=== PATIENT | male | born 1955 | race Caucasian/White ===

== ENCOUNTER 2016-11-21 23:41 | Inpatient (IN) | payer MEDICARE, OTHER ==
[~2016-11-21] VITALS: Ht 172.7 cm; Wt 101.5 kg
[~2016-11-21 23:41] MED LIST: AMLO-512 PO; ASPI81TA2 PO; CARB200T6 PO; CLON.2P TD; INSLAN SQ; INSU100I3 SQ; LISI-618 PO; METO200T PO; MINO10TA3 PO; MULT-1238 PO; PANT40TA25 PO; PARO20TA24 PO; POTA20TA82 PO; SENN-161 PO; SIMV-260 PO
[2016-11-22] MEDS ORDERED: HUMLIS7525 SQ (00:11)
[2016-11-22] MEDS ORDERED: SIMV-260 PO (00:11)
[2016-11-22] MEDS ORDERED: HYDR-2924 PO (00:11)
[2016-11-22] MEDS ORDERED: LEVE500T53 PO (00:11)
[2016-11-22] MEDS ORDERED: CARV25 PO (00:11)
[2016-11-22] MEDS ORDERED: OMEP20 PO (00:11)
[2016-11-22] MEDS ORDERED: TERA5 PO (00:11)
[2016-11-22] MEDS ORDERED: SPIR50 PO (00:11)
[2016-11-22] MEDS ORDERED: 0.9% SODIUM CHLORIDE 10 ML SYRINGE IVP PRN ×2 (00:30→03:45)
[2016-11-22] MEDS ORDERED: 0.9% SODIUM CHLORIDE 15 ML NEB SOLUTION NEB ONE ×2 (00:42→00:50)
[2016-11-22] MEDS ORDERED: IPRATROPIUM BROMIDE 0.5 MG/2.5 ML NEB SOLUTION NEB ONE ×2 (00:42→01:00)
[2016-11-22 00:49] LABS: EOSINOPHILS % (AUTO) 0.1 % (1.0-6.0); HEMOGLOBIN 13.2 g/dL (13.5-17.5); LYMPHOCYTES # (AUTO) 2.3 K/uL (1.0-4.8); MEAN CORPUSCULAR HEMOGLOBIN 30.3 pg (26.0-34.0); MEAN CORPUSCULAR HGB CONC 32.1 G/dL (31.0-37.0); MEAN CORPUSCULAR VOLUME 94 fL (80-100); MONOCYTES # (AUTO) 0.6 K/uL (0.1-1.0); MONOCYTES % (AUTO) 2.7 % (2.0-9.0); PLATELET COUNT (AUTO) 255 K/uL (150-450); RED BLOOD CELL COUNT(AUTO) 4.35 MIL/uL (4.50-5.90); RED CELL DISTRIBUTION WIDTH 13.8 % (11.5-14.5)
[2016-11-22 00:50] LABS: NEUTROPHILS % (AUTO) 87.2 % (40.0-70.0)
[2016-11-22] MEDS ORDERED: ALBUTEROL SULFATE 5 MG/ML 20 ML NEB SOLN [BULK] NEB ONE (01:00)
[2016-11-22 01:15] LABS: ALANINE AMINOTRANSFERASE 46 U/L (12-78); ALBUMIN 2.9 g/dL (3.4-5.0); ANION GAP 10 mmol/L (8-16); ASPARTATE AMINOTRANSFERASE 50 U/L (15-37); BILIRUBIN,TOTAL 0.5 mg/dL (0.1-1.0); CALCIUM, TOTAL 8.9 mg/dL (8.8-10.5); CARBON DIOXIDE 33 mmol/L (22-29); CHLORIDE 100 mmol/L (98-107); CREATININE 1.58 mg/dL (0.60-1.30); GLOMERULAR FILTR. RATE CALC 45 mL/min (>60); SODIUM SERUM 143 mmol/L (136-145); UREA NITROGEN, BLOOD 11 mg/dL (7-18)
[2016-11-22 01:19] LABS: LACTIC ACID 3.1 mmol/L (0.4-2.0); POTASSIUM 2.4 mmol/L (3.5-5.1)
[2016-11-22] MEDS ORDERED: PIPERACILLIN/TAZO 3.375 GM/D5W 50 ML IV ONE (02:00)
[2016-11-22] MEDS ORDERED: VANCOMYCIN HCL 1 GM/D5% WATER 200 ML IV ONE (02:00)
[2016-11-22] MEDS ORDERED: SODIUM CHLORIDE 0.9% 1,000 ML IV ONE (02:15)
[2016-11-22] MEDS: POTASSIUM CHL 10 MEQ/WATER 50 ML IV SCH ×5 (02:15→22:30)
[2016-11-22 02:37] LABS: REFLEX LACTIC ACID? YES YES
[2016-11-22] MEDS ORDERED: POTASSIUM CHL 40 MEQ/D5-0.45NS 1,000 ML IV ONE (02:45)
[2016-11-22 03:07] LABS: APPEARANCE,URINE CLOUDY (CLEAR); GLUCOSE, URINE (UA) 500 mg/dL (NEGATIVE); KETONES,URINE NEGATIVE (NEGATIVE); LEUKOCYTE ESTERASE ,URINE NEGATIVE (NEGATIVE); OCCULT BLOOD,URINE MODERATE (NEGATIVE); PROTEIN,URINE SEE CONFIRM (NEGATIVE)
[2016-11-22 03:21] LABS: ADD UA MICROSCOPIC YES
[2016-11-22 03:22] LABS: SULFOSALICYLIC ACID,URINE 3+ (Negative)
[2016-11-22 03:23] LABS: AMORPHOUS SEDIMENT,UR Moderate /LPF (None Seen)
[2016-11-22] MEDS ORDERED: ONDANSETRON HCL 4 MG/2 ML VIAL IVP PRN ×2 (03:45→06:30)
[2016-11-22] MEDS ORDERED: ACETAMINOPHEN 325 MG TABLET PO PRN (03:45)
[2016-11-22] MEDS ORDERED: SODIUM CHLORIDE 0.9% 250 ML IV ONE (04:29)
[2016-11-22 04:50] VITALS: BP 150/76
[2016-11-22] MEDS ORDERED: BISACODYL 10 MG RECTAL RECTAL SUPPOSITORY PR PRN (06:30)
[2016-11-22] MEDS ORDERED: MAGNESIUM HYDROXIDE SUSPENSION 30 ML UDCUP PO PRN (06:30)
[2016-11-22 07:37] VITALS: BP 149/82
[2016-11-22] MEDS: ALBUTEROL SULFATE 2.5 MG/0.5 ML NEB SOLUTION NEB SCH ×3 (08:00→20:08)
[2016-11-22] MEDS: IPRATROPIUM BROMIDE 0.5 MG/2.5 ML NEB SOLUTION NEB SCH ×3 (08:00→20:08)
[2016-11-22] MEDS ORDERED: VANCOMYCIN HCL 1.25 GM in DEXTROSE 5%-WATER 250 ML IV ONE (10:00)
[2016-11-22] MEDS: PIPERACILLIN/TAZO 3.375 GM/D5W 50 ML IV SCH ×3 (10:25→19:49)
[2016-11-22] MEDS: PANTOPRAZOLE SODIUM 40 MG/VIAL IVP SCH (10:26)
[2016-11-22] MEDS: HEPARIN SODIUM,PORCINE 5,000 UNITS/ML VIAL SQ SCH ×2 (10:26→21:15)
[2016-11-22] MEDS ORDERED: POTASSIUM CHLORIDE 20 MEQ ER TABLET PO ONE ×2 (10:30→22:30)
[2016-11-22 11:31] VITALS: BP 145/81
[2016-11-22] MEDS ORDERED: IOVERSOL 350 MG/ML 150 ML VIAL ONE (13:43)
[2016-11-22 15:01] LABS: B-TYPE NATRIURETIC PEPTIDE 603 pg/mL (0-100)
[2016-11-22 15:17] LABS: CREATINE KINASE MB 6.4 ng/mL (0-5); CREATINE KINASE, TOTAL 294 U/L (39-308); PROCALCITONIN (PCT) 5.09 ng/mL (<0.50)
[2016-11-22 15:58] VITALS: BP 159/86
[2016-11-22 16:03] LABS: PHOSPHORUS 2.3 mg/dL (2.5-4.9)
[2016-11-22 16:33] LABS: LACTIC ACID 7.3 mmol/L (0.4-2.0)
[2016-11-22 16:34] LABS: REFLEX LACTIC ACID? YES YES
[2016-11-22] MEDS ORDERED: MAGNESIUM SULFATE 2 GM in DEXTROSE 5%-WATER 50 ML IV ONE (17:00)
[2016-11-22] MEDS ORDERED: SODIUM PHOS,M-BASIC-D-BASIC 20 MMOL in DEXTROSE 5%-WATER 150 ML IV ONE (17:00)
[2016-11-22] MEDS ORDERED: *CLINICAL-LEVOFLOXACIN IVPB DOSING CLINICAL ONE ×2 (18:45)
[2016-11-22 19:20] VITALS: BP 155/82
[2016-11-22 20:30] LABS: ANION GAP 22 mmol/L (8-16); CALCIUM, TOTAL 9.2 mg/dL (8.8-10.5); CARBON DIOXIDE 22 mmol/L (22-29); CHLORIDE 101 mmol/L (98-107); CREATININE 2.15 mg/dL (0.60-1.30); GLOMERULAR FILTR. RATE CALC 31 mL/min (>60); SODIUM SERUM 145 mmol/L (136-145); UREA NITROGEN, BLOOD 15 mg/dL (7-18)
[2016-11-22] MEDS: LEVOFLOXACIN 750 MG/D5% WATER 150 ML IV SCH (20:51)
[2016-11-22] MEDS ORDERED: CARVEDILOL 6.25 MG TABLET PO SCH (21:00)
[2016-11-22] MEDS ORDERED: SIMVASTATIN 20 MG TABLET PO SCH (21:00)
[2016-11-22] MEDS: TERAZOSIN HCL 5 MG CAPSULE PO SCH (21:14)
[2016-11-22] MEDS: AmLODIPine BESYLATE 10 MG TABLET PO SCH (21:15)
[2016-11-22] MEDS: FUROSEMIDE 20 MG/2 ML VIAL IVP SCH (21:15)
[2016-11-22] MEDS ORDERED: INSULIN ASPART 100 UNITS/ML SQ PRN (22:30)
[2016-11-22] MEDS ORDERED: DEXTROSE 50%-WATER 25 GM/50 ML SYRINGE IVP PRN (22:30)
[2016-11-22] MEDS ORDERED: INSULIN ASPART 100 UNITS/ML SQ ONE (23:00)
[2016-11-22 23:47] VITALS: BP 154/95
[2016-11-23] VITALS (7 sets, daily range): BP systolic 147–168; BP diastolic 86–107
[2016-11-23] MEDS: ALBUTEROL SULFATE 2.5 MG/0.5 ML NEB SOLUTION NEB SCH ×4 (01:12→19:56)
[2016-11-23] MEDS: IPRATROPIUM BROMIDE 0.5 MG/2.5 ML NEB SOLUTION NEB SCH ×4 (01:13→19:56)
[2016-11-23] MEDS: PIPERACILLIN/TAZO 3.375 GM/D5W 50 ML IV SCH ×4 (02:15→21:06)
[2016-11-23] MEDS ORDERED: INSULIN ASPART 100 UNITS/ML SQ PRN ×2 (06:15)
[2016-11-23 07:51] LABS: BASOPHILS # (AUTO) 0.01 K/uL (0.00-0.20); BASOPHILS % (AUTO) 0.1 % (0.0-2.0); EOSINOPHILS # (AUTO) 0.03 K/uL (0.00-0.70); EOSINOPHILS % (AUTO) 0.29 % (1.0-6.0); HEMATOCRIT 36.5 % (41-53); HEMOGLOBIN 11.8 g/dL (13.5-17.5); LYMPHOCYTES # (AUTO) 0.7 K/uL (1.0-4.8); LYMPHOCYTES % (AUTO) 7.2 % (22.0-44.0); MEAN CORPUSCULAR HEMOGLOBIN 30.5 pg (26.0-34.0); MEAN CORPUSCULAR HGB CONC 32.5 G/dL (31.0-37.0); MEAN CORPUSCULAR VOLUME 94 fL (80-100); MONOCYTES # (AUTO) 0.5 K/uL (0.1-1.0); MONOCYTES % (AUTO) 4.5 % (2.0-9.0); PLATELET COUNT (AUTO) 190 K/uL (150-450); RED BLOOD CELL COUNT(AUTO) 3.88 MIL/uL (4.50-5.90); RED CELL DISTRIBUTION WIDTH 14.4 % (11.5-14.5); WHITE BLOOD COUNT (AUTO) 10.3 K/uL (4.5-11.0)
[2016-11-23 08:14] LABS: NEUTROPHILS % (AUTO) 87.9 % (40.0-70.0)
[2016-11-23 08:27] LABS: ANION GAP 8 mmol/L (8-16); CALCIUM, TOTAL 8.6 mg/dL (8.8-10.5); CARBON DIOXIDE 33 mmol/L (22-29); CHLORIDE 104 mmol/L (98-107); CHOL/HDL RATIO 2.2 (4.2-7.3); CREATINE KINASE MB 4.1 ng/mL (0-5); CREATINE KINASE, TOTAL 327 U/L (39-308); CREATININE 1.63 mg/dL (0.60-1.30); GLOMERULAR FILTR. RATE CALC 43 mL/min (>60); SODIUM SERUM 145 mmol/L (136-145); THYROID STIMULATING HORMONE 1.56 uIU/mL (0.36-3.74); UREA NITROGEN, BLOOD 17 mg/dL (7-18)
[2016-11-23 08:33] LABS: POTASSIUM 2.7 mmol/L (3.5-5.1)
[2016-11-23 08:34] LABS: HEMOGLOBIN A1C 8.5 % (4.5-6.2)
[2016-11-23 08:53] LABS: B-TYPE NATRIURETIC PEPTIDE 330 pg/mL (0-100)
[2016-11-23] MEDS ORDERED: LISINOPRIL 20 MG TABLET PO SCH (09:00)
[2016-11-23] MEDS ORDERED: POTASSIUM CHLORIDE 10% 40 MEQ/30 ML LIQUID UDCUP PO ONE (09:00)
[2016-11-23] MEDS ORDERED: CARVEDILOL 25 MG TABLET PO SCH (09:00)
[2016-11-23] MEDS: FUROSEMIDE 20 MG/2 ML VIAL IVP SCH ×2 (09:28→21:05)
[2016-11-23] MEDS: VANCOMYCIN HCL 1.5 GM in DEXTROSE 5%-WATER 250 ML IV SCH (09:28)
[2016-11-23] MEDS: LevETIRAcetam 500 MG TABLET PO SCH (09:30)
[2016-11-23] MEDS: ASPIRIN 81 MG CHEWABLE TABLET PO SCH (09:30)
[2016-11-23] MEDS: PANTOPRAZOLE SODIUM 40 MG/VIAL IVP SCH (09:30)
[2016-11-23] MEDS: AmLODIPine BESYLATE 10 MG TABLET PO SCH ×2 (09:31→21:05)
[2016-11-23] MEDS: HEPARIN SODIUM,PORCINE 5,000 UNITS/ML VIAL SQ SCH ×2 (09:32→21:05)
[2016-11-23] MEDS: INSULIN DETEMIR 100 UNITS/ML SQ SCH (09:35)
[2016-11-23] MEDS: CarBAMazepine 200 MG TABLET PO SCH (09:37)
[2016-11-23] MEDS: PARoxetine HCL 20 MG TABLET PO SCH (09:37)
[2016-11-23] MEDS ORDERED: POTASSIUM CHLORIDE 20 MEQ ER TABLET PO ONE ×2 (10:15→21:00)
[2016-11-23] MEDS: POTASSIUM CHL 10 MEQ/WATER 50 ML IV SCH ×2 (10:35→12:37)
[2016-11-23] MEDS ORDERED: SODIUM CHLORIDE 0.9% 500 ML IV ONE (10:48)
[2016-11-23] MEDS ORDERED: CARVEDILOL 25 MG TABLET PO ONE (11:15)
[2016-11-23] MEDS: ATORVASTATIN CALCIUM 40 MG TABLET PO SCH (11:25)
[2016-11-23] MEDS: NITROGLYCERIN 2% (1 GM=INCH) PACKET TP SCH ×2 (11:25→17:28)
[2016-11-23] MEDS: CLOPIDOGREL BISULFATE 75 MG TABLET PO SCH (11:25)
[2016-11-23] MEDS: CARVEDILOL 25 MG TABLET PO SCH ×2 (17:28→21:05)
[2016-11-23 18:38] LABS: GLUCOSE COMMENT 1 Received Meds; GLUCOSE,POINT OF CARE 315 MG/DL (70-110)
[2016-11-23 18:38] LABS: GLUCOSE COMMENT 1 Received Meds; GLUCOSE COMMENT 2 Doctor Notified; GLUCOSE,POINT OF CARE 442 MG/DL (70-110)
[2016-11-23 18:42] LABS: GLUCOSE COMMENT 1 Received Meds; GLUCOSE,POINT OF CARE 218 MG/DL (70-110)
[2016-11-23] MEDS: TERAZOSIN HCL 5 MG CAPSULE PO SCH (21:05)
[2016-11-23] MEDS: LEVOFLOXACIN 750 MG/D5% WATER 150 ML IV SCH (21:40)
[2016-11-24] MEDS: NITROGLYCERIN 2% (1 GM=INCH) PACKET TP SCH ×4 (00:11→17:59)
[2016-11-24 00:28] LABS: GLUCOSE,POINT OF CARE 219 MG/DL (70-110)
[2016-11-24] MEDS: IPRATROPIUM BROMIDE 0.5 MG/2.5 ML NEB SOLUTION NEB SCH ×4 (01:21→20:00)
[2016-11-24] MEDS: ALBUTEROL SULFATE 2.5 MG/0.5 ML NEB SOLUTION NEB SCH ×4 (01:21→20:00)
[2016-11-24] MEDS: PIPERACILLIN/TAZO 3.375 GM/D5W 50 ML IV SCH ×4 (02:43→21:29)
[2016-11-24 05:45] VITALS: BP 150/88
[2016-11-24 07:03] VITALS: BP 135/85
[2016-11-24 07:34] LABS: BASOPHILS # (AUTO) 0.02 K/uL (0.00-0.20); BASOPHILS % (AUTO) 0.4 % (0.0-2.0); EOSINOPHILS # (AUTO) 0.18 K/uL (0.00-0.70); HEMATOCRIT 35.6 % (41-53); HEMOGLOBIN 11.6 g/dL (13.5-17.5); LYMPHOCYTES # (AUTO) 1.2 K/uL (1.0-4.8); LYMPHOCYTES % (AUTO) 24.3 % (22.0-44.0); MEAN CORPUSCULAR HEMOGLOBIN 30.5 pg (26.0-34.0); MEAN CORPUSCULAR HGB CONC 32.5 G/dL (31.0-37.0); MEAN CORPUSCULAR VOLUME 94 fL (80-100); MONOCYTES # (AUTO) 0.6 K/uL (0.1-1.0); MONOCYTES % (AUTO) 13.5 % (2.0-9.0); NEUTROPHILS # (AUTO) 2.7 K/uL (1.8-7.7); NEUTROPHILS % (AUTO) 57.9 % (40.0-70.0); PLATELET COUNT (AUTO) 198 K/uL (150-450); RED BLOOD CELL COUNT(AUTO) 3.79 MIL/uL (4.50-5.90); WHITE BLOOD COUNT (AUTO) 4.7 K/uL (4.5-11.0)
[2016-11-24 07:59] LABS: ALBUMIN 2.1 g/dL (3.4-5.0); BILIRUBIN,TOTAL 0.5 mg/dL (0.1-1.0); CALCIUM, TOTAL 8.4 mg/dL (8.8-10.5); CREATININE 1.36 mg/dL (0.60-1.30); MAGNESIUM 1.9 mg/dL (1.80-2.40); PHOSPHORUS 2.4 mg/dL (2.5-4.9)
[2016-11-24 08:03] LABS: POTASSIUM 2.9 mmol/L (3.5-5.1)
[2016-11-24] MEDS ORDERED: POTASSIUM CHLORIDE 20 MEQ ER TABLET PO ONE ×2 (08:15→08:30)
[2016-11-24] MEDS: PANTOPRAZOLE SODIUM 40 MG/VIAL IVP SCH (08:58)
[2016-11-24] MEDS: CLOPIDOGREL BISULFATE 75 MG TABLET PO SCH (08:58)
[2016-11-24] MEDS: HEPARIN SODIUM,PORCINE 5,000 UNITS/ML VIAL SQ SCH ×2 (08:58→21:31)
[2016-11-24] MEDS: LevETIRAcetam 500 MG TABLET PO SCH (08:59)
[2016-11-24] MEDS: ATORVASTATIN CALCIUM 40 MG TABLET PO SCH (08:59)
[2016-11-24] MEDS: PARoxetine HCL 20 MG TABLET PO SCH (08:59)
[2016-11-24] MEDS: CarBAMazepine 200 MG TABLET PO SCH (08:59)
[2016-11-24] MEDS: AmLODIPine BESYLATE 10 MG TABLET PO SCH ×2 (08:59→21:31)
[2016-11-24] MEDS: ASPIRIN 81 MG CHEWABLE TABLET PO SCH (08:59)
[2016-11-24 09:08] LABS: HEPATITIS Bs ANTIGEN SCREEN P Negative (Negative); HEPATITIS C AB SCREEN >11.0 s/co ratio (0.0-0.9)
[2016-11-24] MEDS: INSULIN DETEMIR 100 UNITS/ML SQ SCH (09:21)
[2016-11-24] MEDS: VANCOMYCIN HCL 1.5 GM in DEXTROSE 5%-WATER 250 ML IV SCH (09:41)
[2016-11-24] MEDS ORDERED: POTASSIUM PHOS/SODIUM PHOS MIXTURE 1 POWDER PACKET PO ONE (10:00)
[2016-11-24] MEDS: POTASSIUM CHL 10 MEQ/WATER 50 ML IV SCH ×2 (11:28→15:31)
[2016-11-24 11:43] VITALS: BP 129/79
[2016-11-24] MEDS ORDERED: DEXTROSE 50%-WATER 25 GM/50 ML SYRINGE IVP PRN (11:45)
[2016-11-24] MEDS: INSULIN ASPART 100 UNITS/ML SQ PRN ×3 (12:13→22:14)
[2016-11-24 16:05] VITALS: BP 133/79
[2016-11-24] MEDS ORDERED: POTASSIUM CHLORIDE 20 MEQ ER TABLET PO PRN ×2 (16:30)
[2016-11-24 21:17] VITALS: BP 149/79
[2016-11-24] MEDS: TERAZOSIN HCL 5 MG CAPSULE PO SCH (21:30)
[2016-11-24] MEDS: CARVEDILOL 25 MG TABLET PO SCH (21:31)
[2016-11-24] MEDS: LEVOFLOXACIN 750 MG/D5% WATER 150 ML IV SCH (22:12)
[2016-11-25] VITALS (7 sets, daily range): BP systolic 140–152; BP diastolic 78–88
[2016-11-25] MEDS: NITROGLYCERIN 2% (1 GM=INCH) PACKET TP SCH ×4 (01:11→18:04)
[2016-11-25] MEDS: PIPERACILLIN/TAZO 3.375 GM/D5W 50 ML IV SCH ×4 (01:11→20:13)
[2016-11-25] MEDS: ALBUTEROL SULFATE 2.5 MG/0.5 ML NEB SOLUTION NEB SCH ×4 (01:24→20:29)
[2016-11-25] MEDS: IPRATROPIUM BROMIDE 0.5 MG/2.5 ML NEB SOLUTION NEB SCH ×4 (01:24→20:29)
[2016-11-25] MEDS: INSULIN ASPART 100 UNITS/ML SQ PRN ×3 (06:05→18:46)
[2016-11-25 06:45] LABS: BASOPHILS # (AUTO) 0.03 K/uL (0.00-0.20); BASOPHILS % (AUTO) 0.5 % (0.0-2.0); EOSINOPHILS # (AUTO) 0.24 K/uL (0.00-0.70); HEMATOCRIT 34.8 % (41-53); HEMOGLOBIN 11.2 g/dL (13.5-17.5); LYMPHOCYTES # (AUTO) 1.4 K/uL (1.0-4.8); LYMPHOCYTES % (AUTO) 22.7 % (22.0-44.0); MEAN CORPUSCULAR HEMOGLOBIN 30.7 pg (26.0-34.0); MEAN CORPUSCULAR HGB CONC 32.3 G/dL (31.0-37.0); MEAN CORPUSCULAR VOLUME 95 fL (80-100); MONOCYTES # (AUTO) 0.8 K/uL (0.1-1.0); MONOCYTES % (AUTO) 13.3 % (2.0-9.0); NEUTROPHILS # (AUTO) 3.8 K/uL (1.8-7.7); NEUTROPHILS % (AUTO) 59.8 % (40.0-70.0); PLATELET COUNT (AUTO) 203 K/uL (150-450); RED BLOOD CELL COUNT(AUTO) 3.66 MIL/uL (4.50-5.90); RED CELL DISTRIBUTION WIDTH 13.3 % (11.5-14.5); WHITE BLOOD COUNT (AUTO) 6.4 K/uL (4.5-11.0)
[2016-11-25 07:01] LABS: ALANINE AMINOTRANSFERASE 25 U/L (12-78); ANION GAP 3 mmol/L (8-16); ASPARTATE AMINOTRANSFERASE 36 U/L (15-37); BILIRUBIN,TOTAL 0.5 mg/dL (0.1-1.0); CALCIUM, TOTAL 8.4 mg/dL (8.8-10.5); CARBON DIOXIDE 35 mmol/L (22-29); CHLORIDE 105 mmol/L (98-107); CREATININE 1.19 mg/dL (0.60-1.30); GLOMERULAR FILTR. RATE CALC > 60 mL/min (>60); PHOSPHORUS 2.3 mg/dL (2.5-4.9); POTASSIUM 3.5 mmol/L (3.5-5.1); SODIUM SERUM 143 mmol/L (136-145); TOTAL PROTEIN, SERUM 6.9 g/dL (6.4-8.2); UREA NITROGEN, BLOOD 11 mg/dL (7-18)
[2016-11-25 08:04] LABS: B-TYPE NATRIURETIC PEPTIDE 888 pg/mL (0-100)
[2016-11-25] MEDS: PANTOPRAZOLE SODIUM 40 MG/VIAL IVP SCH (08:58)
[2016-11-25] MEDS: CarBAMazepine 200 MG TABLET PO SCH (08:59)
[2016-11-25] MEDS: AmLODIPine BESYLATE 10 MG TABLET PO SCH ×2 (08:59→20:13)
[2016-11-25] MEDS: PARoxetine HCL 20 MG TABLET PO SCH (08:59)
[2016-11-25] MEDS: CLOPIDOGREL BISULFATE 75 MG TABLET PO SCH (08:59)
[2016-11-25] MEDS: LevETIRAcetam 500 MG TABLET PO SCH (08:59)
[2016-11-25] MEDS: CARVEDILOL 25 MG TABLET PO SCH ×2 (08:59→21:15)
[2016-11-25] MEDS: ATORVASTATIN CALCIUM 40 MG TABLET PO SCH (08:59)
[2016-11-25] MEDS: HEPARIN SODIUM,PORCINE 5,000 UNITS/ML VIAL SQ SCH ×2 (08:59→20:13)
[2016-11-25] MEDS: ASPIRIN 81 MG CHEWABLE TABLET PO SCH (08:59)
[2016-11-25] MEDS: INSULIN DETEMIR 100 UNITS/ML SQ SCH (09:07)
[2016-11-25] MEDS: VANCOMYCIN HCL 1.5 GM in DEXTROSE 5%-WATER 250 ML IV SCH (10:37)
[2016-11-25] MEDS: POTASSIUM PHOS/SODIUM PHOS MIXTURE 1 POWDER PACKET PO SCH ×2 (10:43→20:13)
[2016-11-25 17:43] LABS: GLUCOSE COMMENT 1 Received Meds; GLUCOSE,POINT OF CARE 149 MG/DL (70-110)
[2016-11-25 17:43] LABS: GLUCOSE COMMENT 1 Received Meds; GLUCOSE,POINT OF CARE 276 MG/DL (70-110)
[2016-11-25 17:43] LABS: GLUCOSE COMMENT 1 Received Meds; GLUCOSE,POINT OF CARE 226 MG/DL (70-110)
[2016-11-25 17:43] LABS: GLUCOSE,POINT OF CARE 216 MG/DL (70-110)
[2016-11-25 17:43] LABS: GLUCOSE COMMENT 1 Received Meds; GLUCOSE,POINT OF CARE 226 MG/DL (70-110)
[2016-11-25 17:43] LABS: GLUCOSE COMMENT 1 Received Meds; GLUCOSE,POINT OF CARE 287 MG/DL (70-110)
[2016-11-25 17:48] LABS: GLUCOSE COMMENT 1 Received Meds; GLUCOSE,POINT OF CARE 205 MG/DL (70-110)
[2016-11-25 17:48] LABS: GLUCOSE COMMENT 1 Received Meds; GLUCOSE,POINT OF CARE 212 MG/DL (70-110)
[2016-11-25 18:02] LABS: GLUCOSE,POINT OF CARE 203 MG/DL (70-110)
[2016-11-25] MEDS: TERAZOSIN HCL 5 MG CAPSULE PO SCH (20:13)
[2016-11-25] MEDS: LEVOFLOXACIN 750 MG/D5% WATER 150 ML IV SCH (21:15)
[2016-11-26] MEDS: NITROGLYCERIN 2% (1 GM=INCH) PACKET TP SCH ×4 (00:12→17:11)
[2016-11-26] MEDS: PIPERACILLIN/TAZO 3.375 GM/D5W 50 ML IV SCH ×3 (01:55→15:12)
[2016-11-26] MEDS: IPRATROPIUM BROMIDE 0.5 MG/2.5 ML NEB SOLUTION NEB SCH ×3 (02:01→14:38)
[2016-11-26] MEDS: ALBUTEROL SULFATE 2.5 MG/0.5 ML NEB SOLUTION NEB SCH ×3 (02:01→14:38)
[2016-11-26 04:26] VITALS: BP 152/83
[2016-11-26 05:24] LABS: ANION GAP 4 mmol/L (8-16); CALCIUM, TOTAL 8.2 mg/dL (8.8-10.5); CARBON DIOXIDE 34 mmol/L (22-29); CHLORIDE 105 mmol/L (98-107); CREATININE 1.16 mg/dL (0.60-1.30); GLOMERULAR FILTR. RATE CALC > 60 mL/min (>60); SODIUM SERUM 143 mmol/L (136-145); UREA NITROGEN, BLOOD 10 mg/dL (7-18)
[2016-11-26] MEDS: POTASSIUM CHL 10 MEQ/WATER 50 ML IV PRN ×4 (05:51→13:40)
[2016-11-26 08:00] VITALS: BP 145/85
[2016-11-26] MEDS: CARVEDILOL 25 MG TABLET PO SCH (09:00)
[2016-11-26] MEDS: PANTOPRAZOLE SODIUM 40 MG/VIAL IVP SCH (09:00)
[2016-11-26] MEDS: LevETIRAcetam 500 MG TABLET PO SCH (09:00)
[2016-11-26] MEDS: INSULIN DETEMIR 100 UNITS/ML SQ SCH (09:00)
[2016-11-26] MEDS: ASPIRIN 81 MG CHEWABLE TABLET PO SCH (09:00)
[2016-11-26] MEDS: CarBAMazepine 200 MG TABLET PO SCH (09:00)
[2016-11-26] MEDS: PARoxetine HCL 20 MG TABLET PO SCH (09:00)
[2016-11-26] MEDS: AmLODIPine BESYLATE 10 MG TABLET PO SCH (09:00)
[2016-11-26] MEDS: HEPARIN SODIUM,PORCINE 5,000 UNITS/ML VIAL SQ SCH (09:00)
[2016-11-26] MEDS: ATORVASTATIN CALCIUM 40 MG TABLET PO SCH (09:00)
[2016-11-26] MEDS: VANCOMYCIN HCL 1.5 GM in DEXTROSE 5%-WATER 250 ML IV SCH (09:00)
[2016-11-26] MEDS: CLOPIDOGREL BISULFATE 75 MG TABLET PO SCH (09:00)
[2016-11-26 11:08] LABS: ORGANISM ID Not indicated.
[2016-11-26] MEDS ORDERED: SODIUM CHLORIDE 0.9% 500 ML IV ONE (11:12)
[2016-11-26 11:53] VITALS: BP 155/87
[2016-11-26] MEDS: INSULIN ASPART 100 UNITS/ML SQ PRN ×2 (12:35→17:13)
[2016-11-26] MEDS ORDERED: HEPA500017 SQ (14:01)
[2016-11-26] MEDS ORDERED: INSU100V12 SQ (14:02)
[2016-11-26] MEDS ORDERED: IPRNEB IH (14:03)
[2016-11-26] MEDS ORDERED: LEVO750P3 IV (14:04)
[2016-11-26] MEDS ORDERED: NTP TD (14:05)
[2016-11-26] MEDS ORDERED: PANT40TA25 PO (14:05)
[2016-11-26] MEDS ORDERED: TERA5 PO (14:06)
[2016-11-26] MEDS ORDERED: ZOSY3375FZ IV (14:06)
[2016-11-26] MEDS ORDERED: INSNOV SQ (14:09)
[2016-11-26] MEDS ORDERED: VANC1.5P11 IVPB (14:09)
[2016-11-26] MEDS ORDERED: BISA10S PR (14:09)
[2016-11-26] MEDS ORDERED: MOM30 PO (14:10)
[2016-11-26] MEDS ORDERED: ONDA4 IVP (14:11)
[2016-11-26] MEDS ORDERED: FURO20 IVP (14:12)
[2016-11-26 15:38] VITALS: BP 154/90
[2016-11-26 16:22] LABS: GLUCOSE,POINT OF CARE 182 MG/DL (70-110)
[2016-11-26 16:22] LABS: GLUCOSE,POINT OF CARE 187 MG/DL (70-110)
[2016-11-27 07:25] LABS: ALBUMIN/GLOBULIN RAITO (PEP) 0.7 (0.7-1.7); ALPHA-1 GLOBULINS(PEP) 0.3 g/dL (0.0-0.4); ALPHA-2 GLOBULINS (PEP) 0.8 g/dL (0.4-1.0); BETA (PEP) 0.7 g/dL (0.7-1.3); GLOBULIN TOTAL (PEP) 3.8 g/dL (2.2-3.9); M-SPIKE (PEP) 0.4 g/dL (Not Observed); TOTAL PROTEIN 6.5 g/dL (6.0-8.5)
[2016-11-27 08:26] LABS: IGG (IMMUNOFIXATION) 1746 mg/dL (700-1600)
[2016-11-27 11:43] LABS: GLUCOSE COMMENT 1 Received Meds; GLUCOSE,POINT OF CARE 237 MG/DL (70-110)
[2016-11-27 11:43] LABS: GLUCOSE COMMENT 1 Received Meds; GLUCOSE,POINT OF CARE 276 MG/DL (70-110)
[2016-11-28 07:13] LABS: ALPHA-1 URINE (ELP) 3.1 %; ALPHA-2 URINE(ELP) 6.7 %; GAMMA URINE(ELP) 26.9 %; TOTAL PROTEIN URINE 189.8 mg/dL (Not Estab.)
[2016-11-28 09:04] LABS: COMPLEMENT C3 102 mg/dL (82-167); COMPLEMENT C4 19 mg/dL (14-44)
== END 2016-11-26 18:10 | DRG 871 ==
LOC: EMS 23:43 → 5S 11-22 03:13 → 5N 11-24 18:55
PROVIDERS: ADMIT Internal Medicine Geriatric Medicine; ATTEND Internal Medicine Geriatric Medicine
PROC: 5A09457 Assistance with Respiratory Ventilation, 24-96 Consecutive Hours, Continuous Positive Airway Pressure (ICD-10-PCS; principal; 2016-11-22)
DX: A41.9 Sepsis, unspecified organism (principal); J96.01 Acute respiratory failure with hypoxia; I63.9 Cerebral infarction, unspecified; R65.21 Severe sepsis with septic shock; J69.0 Pneumonitis due to inhalation of food and vomit; E87.2 Acidosis; R13.19 Other dysphagia; E44.0 Moderate protein-calorie malnutrition; I48.0 Paroxysmal atrial fibrillation; N17.9 Acute kidney failure, unspecified; I13.0 Hypertensive heart and chronic kidney disease with heart failure and stage 1 through stage 4 chronic kidney disease, or unspecified chronic kidney disease; I50.30 Unspecified diastolic (congestive) heart failure; E11.22 Type 2 diabetes mellitus with diabetic chronic kidney disease; E87.6 Hypokalemia; N18.9 Chronic kidney disease, unspecified; B18.2 Chronic viral hepatitis C; B95.8 Unspecified staphylococcus as the cause of diseases classified elsewhere; E83.39 Other disorders of phosphorus metabolism; E87.5 Hyperkalemia; G40.909 Epilepsy, unspecified, not intractable, without status epilepticus; Z66 Do not resuscitate; Z82.49 Family history of ischemic heart disease and other diseases of the circulatory system; Z83.3 Family history of diabetes mellitus; Z86.73 Personal history of transient ischemic attack (TIA), and cerebral infarction without residual deficits; Z90.81 Acquired absence of spleen; D64.9 Anemia, unspecified; E83.42 Hypomagnesemia; F32.9 Major depressive disorder, single episode, unspecified; R26.9 Unspecified abnormalities of gait and mobility; E78.5 Hyperlipidemia, unspecified; Z68.34 Body mass index [BMI] 34.0-34.9, adult
CPT/HCPCS: 51702; 70450; 71250; 72192; 74150; 76770; 80074; 82105; 82306; 82570; 82607; 82746; 82784; 82962; 83036; 83605; 83735; 84100; 84132; 84145; 84155; 84156; 84165; 84166; 84300; 84439; 84443; 84540; 86160; 86334; 87040; 87081; 87449; 87899; 92526; 92610; 93005; 93306; 94640; 94644; 94660; 96365; 96367; 96368; 99291; C9113; J1644; J1815; J1940; J1956; J2405; J2543; J3370; J3475; J3480; J3490; J7030; J7040; J7050; J7060